=== PATIENT | male | born 1995 ===

== ENCOUNTER 2018-06-20 22:46 | Emergency (ER) | payer OTHER ==
[2018-06-20] MEDS ORDERED: Ibuprofen TAB* 600 MG PO ONE (23:08)
--- NOTE | 2018-06-20 23:44 | ED ---
Upper Extremity Pain - HPI Summary HPI Summary: Patient complains of pain and deformity to the third digit of left hand after basketball injury today. Denies loss of sensation distally. Denies any other pain, injury, symptoms. - History of Current Complaint Chief Complaint: EDExtremityUpper Stated Complaint: LT MIDDLE FINGER INJURY Time Seen by Provider: 06/20/18 23:03 Hx Obtained From: Patient Mechanism Of Injury: Blunt Trauma Onset/Duration: Started Minutes Ago Timing: Constant Severity Initially: Moderate Severity Currently: Moderate Pain Location: Finger Character: Throbbing Aggravating Factor(s): Movement Alleviating Factor(s): Ice Associated Signs & Symptoms: Positive: Swelling - Allergies/Home Medications Allergies/Adverse Reactions: Allergies Allergy/AdvReac Type Severity Reaction Status Date / Time No Known Allergies Allergy Unverified 06/20/18 22:52 PMH/Surg Hx/FS Hx/Imm Hx Endocrine/Hematology History: Denies: Hx Anticoagulant Therapy Cardiovascular History: Denies: Hx Cardiac Arrest History: Denies: Hx Dialysis Musculoskeletal History: Denies: Hx Rheumatoid Arthritis, Hx Osteoporosis EENT History: Denies: Hx Deafness Neurological History: Denies: Hx Developmental Delay Psychiatric History: Denies: Hx Autism Infectious Disease History: No Infectious Disease History: Denies: Traveled Outside the [place] in Last 30 Days - Family History Known Family History: Positive: Non-Contributory - Social History Occupation: Student Alcohol Use: None Substance Use Type: Reports: None Smoking Status (MU): Never Smoked Tobacco Review of Systems Constitutional: Negative Eyes: Negative ENT: Negative Cardiovascular: Negative Respiratory: Negative Gastrointestinal: Negative Genitourinary: Negative Musculoskeletal: Other Skin: Negative Neurological: Negative Psychological: Normal All Other Systems Reviewed And Are Negative: Yes Physical Exam - Summary Physical Exam Summary: Obvious deformity and swelling to PIP joint of the third digit of left hand. No indication of wound, ecchymosis, erythema, extra warmth. Cap refill immediate on same digit. PMS intact distally. Triage Information Reviewed: Yes Vital Signs On Initial Exam: Initial Vitals Temp Pulse Resp BP Pulse Ox 98.2 F 74 16 127/68 99 06/20/18 22:49 06/20/18 22:49 06/20/18 22:49 06/20/18 22:49 06/20/18 22:49 Vital Signs Reviewed: Yes Appearance: Positive: Well-Appearing Skin: Positive: Warm Head/Face: Positive: Normal Head/Face Inspection Eyes: Positive: Normal Neck: Positive: Supple Respiratory/Lung Sounds: Positive: Clear to Auscultation Cardiovascular: Positive: Normal Abdomen Description: Positive: Nontender Musculoskeletal: Positive: Normal Neurological: Positive: Normal Psychiatric: Positive: Normal AVPU Assessment: Alert - Lisandro Coma Scale Best Eye Response: 4 - Spontaneous Best Motor Response: 6 - Obeys Commands Best Verbal Response: 5 - Oriented Coma Scale Total: 15 Procedures - Joint Reduction 1 Joint Reduction Site: other Specify Other Joint Reduced: DIP joint third finger left hand Conscious Sedation: No Reduction Attempts: 1 Pre-Procedure NV Exam: Yes Post Joint Reduction Film: joint reduced Diagnostics - Vital Signs Vital Signs Temp Pulse Resp BP Pulse Ox 06/20/18 22:56 73 121/69 100 06/20/18 22:49 98.2 F 74 16 127/68 99 - Laboratory Lab Statement: Any lab studies that have been ordered have been reviewed, and results considered in the medical decision making process. - Radiology finger Radiology Interpretation Completed By: ED Physician Summary of Radiographic Findings: Reduction successful. hand Radiology Interpretation Completed By: ED Physician Summary of Radiographic Findings: Dislocation of the IP joint of third finger of left hand. Course/Dx - Course Course Of Treatment: Patient complains of pain and deformity to the third digit of left hand after basketball injury today. Denies loss of sensation distally. Denies any other pain, injury, symptoms. Physical exam: Obvious deformity and swelling to PIP joint of the third digit of left hand. No indication of wound, ecchymosis, erythema, extra warmth. Cap refill immediate on same digit. PMS intact distally. X-ray positive for dislocation and DIP joint of third digit of left hand. Reduction performed. Successful reduction confirmed by post reduction x-ray. Finger splint placed. - Diagnoses Provider Diagnoses: Dislocation, finger closed Discharge - Sign-Out/Discharge Documenting (check all that apply): Patient Departure - Discharge Plan Condition: Stable Disposition: HOME Patient Education Materials: Finger Dislocation (ED) Forms: *Work Release Referrals: Caitlyn Garcia MD [Primary Care Provider] - Additional Instructions: Ibuprofen 600 mg 3 times a day for pain. Wear splint until finger feels better. Move finger from time to time to maintain flexibility. Follow-up with primary care. Return immediately for any new or worsening symptoms - Billing Disposition and Condition Condition: STABLE Disposition: Home
[2018-06-20 23:54] VITALS: BP 121/70
== END 2018-06-20 23:54 | disposition home or self-care (01) ==
LOC: ED 22:46
DX: S63.293A Dislocation of distal interphalangeal joint of left middle finger, initial encounter (principal); X58.XXXA Exposure to other specified factors, initial encounter; Y93.67 Activity, basketball; Y92.310 Basketball court as the place of occurrence of the external cause
CPT/HCPCS: 26770; 73140; 99282